=== PATIENT | male | born 1940 | race Caucasian/White ===

== ENCOUNTER → 2017-09-02 11:44 | Outpatient (CLI) | payer OTHER, SELFPAY ==
--- NOTE | 2017-09-02 11:50 | RAD_ITS ---
STUDY: X-RAY - RIGHT WRIST REASON FOR EXAM: Male, 77 years old. Redness and swelling. No known injury. TECHNIQUE: 3 view(s) of the wrist were obtained. COMPARISON: None. FINDINGS: Normal visualized distal radius. There is slight cortical irregularity along the lateral margin of the ulnar styloid. Normal radiocarpal articulation. Normal distal radioulnar articulation. Normal carpal bones. Minor degenerative narrowing suggested at the articulation between the distal scaphoid and trapezoid. Normal carpometacarpal articulation of the thumb. Minor narrowing suggested at the articulation between the trapezium and the lateral base of the second metacarpal. Otherwise, normal second through fifth carpometacarpal articulations. Normal visualized metacarpal bones. There is soft tissue swelling from the visualized forearm through the hand. There is no demonstrated osseous destructive lesion. There is no demonstrated acute fracture. RAD/Wrist min 3 Views IMPRESSION: Soft tissue swelling from the forearm through the hand, consistent with cellulitis. No acute osseous abnormality of the right wrist. Electronically Signed: Rodger Michaud MD at 12:35 EST , Service support ,
--- NOTE | 2017-09-02 11:50 | RAD_ITS ---
STUDY: X-RAY - RIGHT HAND REASON FOR EXAM: Male, 77 years old. Red and swollen and, no history of injury. TECHNIQUE: 3 view(s) of the hand. COMPARISON: None. FINDINGS: Normal radiocarpal articulation. Normal distal radioulnar joint. Normal visualized carpal bones. There are early degenerative changes at the articulations between the distal scaphoid and trapezoid as well as between the trapezoid and trapezium. Normal carpometacarpal articulation of the thumb. Early degenerative change at the articulation between the trapezium and lateral base of the second metacarpal. Normal third through fifth carpometacarpal joints. Occasional sites of mild, intact cortical irregularity consistent with chronic degenerative change noted at the heads of the metacarpals. Normal metacarpophalangeal joint of the thumb. Normal interphalangeal joint of the thumb. Normal proximal and distal phalanges of the thumb. There is degenerative arthrosis of the metacarpophalangeal (MCP) joints. Normal proximal and distal interphalangeal joints of the second through fifth fingers. Normal phalanges of the second through fifth fingers. There is soft tissue swelling from the visualized distal forearm through the fingers, which may reflect cellulitis. There is no demonstrated osseous destructive lesion or acute fracture. RAD/Hand Min 3 Views IMPRESSION: Soft tissue swelling consistent with cellulitis. Mild occasional degenerative changes of the right hand, as noted. No acute osseous abnormality. Electronically Signed: Rodger Michaud MD at 12:13 EST , Service support ,
== END ==
PROVIDERS: Family Provider Family Medicine; PCP Family Medicine; Visit Provider Family Medicine
DX: M79.89 Other specified soft tissue disorders (principal); M25.431 Effusion, right wrist
CPT/HCPCS: 73110; 73130

== ENCOUNTER → 2017-11-12 07:00 | Outpatient (CLI) | payer OTHER, SELFPAY ==
[2017-11-12 10:32] LABS: PSA,Total- Diagnostic 4.11 ng/mL (0.0-4.0)
== END ==
PROVIDERS: Family Provider Family Medicine; PCP Family Medicine; Visit Provider Urology
DX: R97.20 Elevated prostate specific antigen [PSA] (principal)
CPT/HCPCS: 36415; 84153

== ENCOUNTER 2018-05-31 06:35 | Outpatient (RCR) | payer OTHER, SELFPAY ==
[2017-08-02 00:33] VITALS: BP 142/58; BP 190/68
== END 2018-06-01 23:59 ==
LOC: CR 06:35
PROVIDERS: Family Provider Family Medicine; PCP Family Medicine; Visit Provider Internal Medicine Cardiovascular Disease
DX: Z95.2 Presence of prosthetic heart valve (principal)
CPT/HCPCS: 93798

== ENCOUNTER → 2018-10-14 14:59 | Outpatient (CLI) | payer OTHER, SELFPAY ==
[2017-07-16 14:56] VITALS: BMI 29.3
== END ==
PROVIDERS: Family Provider Family Medicine; PCP Family Medicine; Referring Provider Urology; Visit Provider Urology
DX: Z12.5 Encounter for screening for malignant neoplasm of prostate (principal)
CPT/HCPCS: 36415; 84153; G0103

== ENCOUNTER → 2019-01-27 13:44 | Outpatient (CLI) | payer OTHER, SELFPAY ==
[2019-01-12 15:18] VITALS: BMI 27.4
--- NOTE | 2019-01-27 13:46 | ECHOD_ITS ---
Reason For Study: Bicuspid AoV Procedure This was a 2D Doppler, Color Flow transthoracic echocardiogram. Exam performed in department. Left Ventricle Normal LV size. Mild concentric left ventricular hypertrophy. The estimated ejection fraction is 65 %. Normal diastology for age. No regional wall motion abnormalities noted. Right Ventricle Normal RV size. Normal systolic function. Atria Normal left atrium. Normal right atrium. Mitral Valve Normal mitral valve. Tricuspid Valve Normal tricuspid valve. Mild (1+) tricuspid valve insufficiency. Pulmonary artery systolic pressure is 28 mmHg. Aortic Valve Stable appearing bioprosthetic aortic valve apparatus. Pulmonic Valve Normal pulmonic valve. Great Vessels Normal aortic root. The pulmonary artery is normal size. Normal inferior vena cava. Pericardium/Pleural No pericardial effusion. MMode/2D Measurements & Calculations LVIDd: 3.9 cm IVSd: 1.4 cm LVOT diam: 2.0 cm LVIDs: 2.4 cm LVPWd: 1.4 cm LVOT area: 3.1 cm2 RVDd: 4.3 cm FS: 39.1 % Ao root diam: 3.6 cm LAV(MOD-bp): 52.5 ml LVAd ap4: 25.4 cm2 LAV(MOD-bp) Indexed: 26.8 ml/m2 EDV(MOD-sp4): 68.4 ml LAV(MOD-sp2): 61.2 ml EDV(sp4-el): 67.5 ml LAV(MOD-sp4): 44.0 ml LVAs ap4: 12.2 cm2 ESV(MOD-sp4): 20.4 ml ESV(sp4-el): 19.7 ml EF(MOD-sp4): 70.2 % EF(sp4-el): 70.9 % SV(MOD-sp4): 48.0 ml SV(sp4-el): 47.9 ml LA A4 area: 17.3 cm2 LA dimension(2D): 4.7 cm RA A4 area: 18.6 cm2 Doppler Measurements & Calculations MV E max moses: 64.0 cm/sec Lat Peak E' Moses: 10.3 cm/sec Med Peak E' Moses: 4.7 cm/sec MV A max moses: 86.1 cm/sec E/E' lat: 6.2 E/E' med: 13.6 MV E/A: 0.74 Ao V2 max: 304.8 cm/sec LV V1 max: 139.8 cm/sec SV(LVOT): 91.9 ml Ao max P.2 mmHg LV V1 max P.8 mmHg Ao V2 mean: 194.2 cm/sec LV V1 mean P.8 mmHg Ao mean P.7 mmHg LV V1 mean: 92.2 cm/sec Ao V2 VTI: 60.4 cm LV V1 VTI: 29.8 cm CASH(I,D): 1.5 cm2 CASH(V,D): 1.4 cm2 PA V2 max: 86.1 cm/sec TR max moses: 245.0 cm/sec TR max P.0 mmHg Interpretation Summary Normal LV size. Mild concentric left ventricular hypertrophy. The estimated ejection fraction is 65 %. Normal diastology for age. No regional wall motion abnormalities noted. Stable appearing bioprosthetic aortic valve apparatus. Mild (1+) tricuspid valve insufficiency. Ordering Physician: Dav Palacios Referring Physician: Ronnie Brewster Performed By: Marlys Ashley, DAVID, RVT
== END ==
PROVIDERS: Family Provider Family Medicine; PCP Family Medicine; Referring Provider Internal Medicine Cardiovascular Disease; Visit Provider Internal Medicine Cardiovascular Disease
DX: I48.0 Paroxysmal atrial fibrillation (principal); I35.1 Nonrheumatic aortic (valve) insufficiency; I10 Essential (primary) hypertension; M06.9 Rheumatoid arthritis, unspecified; Z98.890 Other specified postprocedural states; Z95.2 Presence of prosthetic heart valve
CPT/HCPCS: 93306

== ENCOUNTER → 2019-09-15 07:02 | Outpatient (CLI) | payer OTHER, SELFPAY ==
[2019-01-12 15:18] VITALS: BMI 27.4
[2019-09-15 10:25] LABS: PSA,Total- Diagnostic 4.92 ng/mL (0.0-4.0)
== END ==
PROVIDERS: PCP Family Medicine; Referring Provider Urology; Visit Provider Urology
DX: R97.20 Elevated prostate specific antigen [PSA] (principal)
CPT/HCPCS: 36415; 84153

== ENCOUNTER → 2020-12-23 07:43 | Outpatient (CLI) | payer OTHER, SELFPAY ==
[2020-01-11 14:51] VITALS: BMI 26.4
[2020-12-23 08:52] LABS: PSA,Total - Annual Screen 6.31 ng/mL (0.00-4.00)
== END ==
PROVIDERS: PCP Family Medicine; Referring Provider Urology; Visit Provider Urology
DX: Z12.5 Encounter for screening for malignant neoplasm of prostate (principal)
CPT/HCPCS: 36415; 84153; G0103

== ENCOUNTER → 2020-12-24 07:36 | Outpatient (CLI) | payer OTHER, SELFPAY ==
[2020-01-11 14:51] VITALS: BMI 26.4
[2020-12-24 09:07] LABS: AST(SGOT) 108 U/L (15-37); Alanine Aminotransfer ALT/SGPT 92 U/L (16-61); Albumin, Serum 3.6 g/dL (3.2-5.0); Alkaline Phosphatase 78 U/L (45-117); Anion Gap 2 (5-15); BUN 21 mg/dL (7-18); BUN/Creat Ratio 24.1 RATIO (10-20); Bilirubin, Direct 0.21 mg/dL (0.00-0.30); Chloride 108 mmol/L (98-107); Cholesterol 213 mg/dL (200); Creatinine, Serum 0.87 mg/dL (0.70-1.30); EST Glomerular Filtration Rate 90 mL/min (>60); Est Glom Filt Rate - Afr Amer 109 mL/min (>60); Glucose 86 mg/dL (74-106); High Density Lipoprotein 53 mg/dL; Potassium 4.1 mmol/L (3.5-5.1); Protein, Total 6.6 g/dL (6.4-8.2); Sodium Level 140 mmol/L (136-145); Triglycerides 111 mg/dL; Very Low Density Lipoprotein 22 mg/dL (5-40)
== END ==
PROVIDERS: PCP Family Medicine; Referring Provider Internal Medicine Cardiovascular Disease; Visit Provider Internal Medicine Cardiovascular Disease
DX: I10 Essential (primary) hypertension (principal); Z95.2 Presence of prosthetic heart valve
CPT/HCPCS: 36415; 80048; 80061; 80076

== ENCOUNTER → 2021-01-13 14:39 | Outpatient (CLI) | payer OTHER, SELFPAY ==
[2020-01-11 14:51] VITALS: BMI 26.4
--- NOTE | 2021-01-13 15:11 | ECHOD_ITS ---
Reason For Study: Valve Replacement Eval Procedure This was a 2D Doppler, Color Flow transthoracic echocardiogram. Exam performed in department. Left Ventricle Normal LV size. Left ventricular systolic function is normal. The estimated ejection fraction is 60 %. Stage 1 diastolic dysfunction. No regional wall motion abnormalities noted. Right Ventricle Normal RV size. Normal systolic function. Atria The left atrium is mildly enlarged. Normal right atrium. Mitral Valve Normal mitral valve. Tricuspid Valve Normal tricuspid valve. Mild tricuspid valve insufficiency. Pulmonary artery systolic pressure is 28 mmHg. Aortic Valve Stable appearing bioprosthetic aortic valve apparatus. Pulmonic Valve Normal pulmonic valve. Great Vessels Normal aortic root. The pulmonary artery is normal size. Normal inferior vena cava. Pericardium/Pleural No pericardial effusion. MMode/2D Measurements & Calculations LVIDd: 4.7 cm IVSd: 1.4 cm LVOT diam: 2.0 cm LVIDs: 2.6 cm LVPWd: 1.1 cm LVOT area: 3.0 cm2 RVDd: 3.9 cm FS: 43.6 % Ao root diam: 3.3 cm LAV(MOD-bp): 71.4 ml LVAd ap4: 31.4 cm2 LAV(MOD-bp) Indexed: 36.2 ml/m2 LVLd ap4: 8.1 cm LAV(MOD-sp2): 71.9 ml EDV(MOD-sp4): 104.9 ml LAV(MOD-sp4): 68.7 ml EDV(sp4-el): 102.5 ml LVAs ap4: 15.8 cm2 LVLs ap4: 6.8 cm ESV(MOD-sp4): 34.8 ml ESV(sp4-el): 31.4 ml EF(MOD-sp4): 66.8 % EF(sp4-el): 69.4 % SV(MOD-sp4): 70.1 ml SV(sp4-el): 71.1 ml LA A4 area: 22.8 cm2 LA dimension(2D): 5.5 cm RA A4 area: 20.9 cm2 Doppler Measurements & Calculations MV E max moses: 63.4 cm/sec Lat Peak E' Moses: 12.2 cm/sec Med Peak E' Moses: 3.4 cm/sec MV A max moses: 71.3 cm/sec E/E' lat: 5.2 E/E' med: 18.5 MV E/A: 0.89 Ao V2 max: 261.7 cm/sec LV V1 max: 180.3 cm/sec SV(LVOT): 131.7 ml Ao max P.4 mmHg LV V1 max P.0 mmHg Ao V2 mean: 175.9 cm/sec LV V1 mean P.9 mmHg Ao mean P.8 mmHg LV V1 mean: 125.0 cm/sec Ao V2 VTI: 60.8 cm LV V1 VTI: 43.6 cm CASH(I,D): 2.2 cm2 CASH(V,D): 2.1 cm2 PA V2 max: 78.9 cm/sec TR max moses: 247.0 cm/sec TR max P.4 mmHg ECHO/Echo Complete Interpretation Summary Normal LV size. Left ventricular systolic function is normal. The estimated ejection fraction is 60 %. Pulmonary artery systolic pressure is 28 mmHg. Stage 1 diastolic dysfunction. The left atrium is mildly enlarged. Stable appearing bioprosthetic aortic valve apparatus. Ordering Physician: aDv Palacios Referring Physician: Daniel Davis Performed By: Marlys Ashley, DAVID, RVT
== END ==
PROVIDERS: PCP Family Medicine; Referring Provider Internal Medicine Cardiovascular Disease; Visit Provider Internal Medicine Cardiovascular Disease
DX: I10 Essential (primary) hypertension (principal); Z95.2 Presence of prosthetic heart valve
CPT/HCPCS: 93306

== ENCOUNTER → 2021-06-16 07:03 | Outpatient (CLI) | payer OTHER, SELFPAY ==
[2020-01-11 14:51] VITALS: BMI 26.4
[2021-06-16 10:32] LABS: PSA,Total- Diagnostic 4.98 ng/mL (0.0-4.0)
== END ==
PROVIDERS: PCP Family Medicine; Referring Provider Nurse Practitioner Adult Health; Visit Provider Nurse Practitioner Adult Health
DX: R97.20 Elevated prostate specific antigen [PSA] (principal)
CPT/HCPCS: 36415; 84153

== ENCOUNTER → 2022-01-26 | Outpatient (CLI) | payer OTHER, SELFPAY ==
[2022-01-26 12:57] LABS: PSA,Total- Diagnostic 6.22 ng/mL (0.0-4.0)
== END | disposition home or self-care (01) ==
PROVIDERS: PCP Family Medicine; Referring Provider Urology; Visit Provider Urology
DX: R97.20 Elevated prostate specific antigen [PSA] (principal)
CPT/HCPCS: 36415; 84153

== ENCOUNTER → 2022-02-25 | Outpatient (CLI) | payer OTHER, SELFPAY ==
--- NOTE | 2022-02-25 08:49 | CT_ITS ---
STUDY: CTA CHEST REASON FOR EXAM: Male, 81 years old. Aortic valve replacement. Dilatation of the ascending thoracic aorta. RADIATION DOSAGE (If Supplied By Facility): CTDIvol = ( 24.85 ) mGy, DLP = ( 535.74 ) mGycm TECHNIQUE: The examination was performed with the intravenous administration of IV 100mL Isovue-370. Post-processing of the angiographic images was performed, with multiplanar reformation and 3D reconstruction. Individualized dose optimization techniques were used for this CT. COMPARISON: None. FINDINGS: Normal enhancement of the main pulmonary artery and right and left pulmonary arteries. Normal enhancement of the bilateral peripheral pulmonary arteries. There is no demonstrated pulmonary embolism. 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 The transverse dimension of the ascending thoracic aorta presently measures 3.4 cm. Postoperative changes are seen. There is no demonstrated aortic dissection. Sternal cerclage wires are present from a prior sternotomy. Mild cardiomegaly. There are visualized mediastinal lymph nodes, which are within normal size limits, and with normal morphology. Normal hilar regions. Normal visualized trachea and bronchi. The lungs are well expanded. Normal pulmonary parenchyma. Normal pleura. Normal chest wall structures. There are degenerative changes of thoracic spine. Normal visualized upper abdomen. 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 Electronically Signed: Carlin Montano MD at 10:11 EDT ,
[2022-02-25 09:25] LABS: CREATININE FINGERSTICK < 0.9 mg/dL (0.70-1.30); EGFR FINGERSTICK > 60.0000 mL/min (>60)
[2022-02-25 10:35] LABS: AST(SGOT) 25 U/L (15-37); Alanine Aminotransfer ALT/SGPT 21 U/L (16-61); Alkaline Phosphatase 72 U/L (45-117); Anion Gap 2 (5-15); BUN 23 mg/dL (7-18); BUN/Creat Ratio 23.7 RATIO (10-20); Bilirubin, Direct 0.22 mg/dL (0.00-0.30); Calcium,Total 9.1 mg/dL (8.5-10.1); Chloride 108 mmol/L (98-107); Cholesterol 134 mg/dL (200); Creatinine, Serum 0.97 mg/dL (0.70-1.30); EST Glomerular Filtration Rate 79 mL/min (>60); Est Glom Filt Rate - Afr Amer 96 mL/min (>60); Globulin 2.6 g/dL (2.2-4.2); Glucose 83 mg/dL (74-106); High Density Lipoprotein 53 mg/dL; Potassium 4.3 mmol/L (3.5-5.1); Protein, Total 6.6 g/dL (6.4-8.2); Sodium Level 140 mmol/L (136-145); Triglycerides 46 mg/dL; Very Low Density Lipoprotein 9 mg/dL (5-40)
== END | disposition home or self-care (01) ==
LOC: CT 08:43
PROVIDERS: PCP Family Medicine; Referring Provider Internal Medicine Cardiovascular Disease; Visit Provider Internal Medicine Cardiovascular Disease
DX: E78.00 Pure hypercholesterolemia, unspecified (principal); Z98.890 Other specified postprocedural states; Z95.2 Presence of prosthetic heart valve
CPT/HCPCS: 36415; 71275; 80048; 80061; 80076; Q9967

== ENCOUNTER → 2023-10-04 | Outpatient (CLI) | payer MEDICARE, BC, SELFPAY ==
--- OUTSIDE RECORDS SUMMARY | 2023-10-04 07:18 | XMS RPT_ITS | CCD ---
Author Name Unknown Address [address] [place] [address] Organization [facility] Care Team Providers Care Meat Service Team Member Name Role Phone JANET Rodriguez, Rina Mendoza Unavailable Guy Maldonado RN, Chloe Brunson Unavailable Unavailable Erica GONZALES, Chloe Brunson Unavailable Unavailable SVENSSONMK G Unavailable Unavailable SVENSSON, LARS G Unavailable Unavailable LINCOFF, MARAH Unavailable Unavailable SVENSSON, LARS G Unavailable Unavailable LINCOFF, MARAH Unavailable Unavailable LINCOFF, MARAH Unavailable Unavailable SVENSSON, LARS G Unavailable Unavailable SVENSSON, LARS G Unavailable Unavailable SVENSSON, LARS G Unavailable Unavailable SVENSSON, LARS G Unavailable Unavailable SVENSSON, LARS G Unavailable Unavailable SVENSSON, LARS G Unavailable Unavailable SVENSSON, LARS G Unavailable Unavailable SVENSSON, LARS G Unavailable Unavailable HEMA CABALLERO (RECOVERY ANALYST) Unavailable Unava ilable SVSON LARS G Unavailable Unavailable JANET Rodriguez, Rina Mendoza Unavailable Unavailcindy Rodriguez RN, Rina Mendoza Unavailable Unavailcindy Maldonado RN, Chloe Brunson Unavailable Unavailable Medications Completed/Discontinued Medications Medication Drug Class(es) Dates Sig (Normalized) Sig (Original) amoxicillin 500 mg oral tablet (4 sources) Penicillin-class Antibacterial Start: 04-09-2017 take 4 tablets by mouth every hour AMOXICILLIN 500 MG TABS 4 tablets by mouth 1 hr prior to procedure AMOXICILLIN [id number] Dav Palacios MD aspirin 81 mg delayed release oral tablet (4 sources) Platelet Aggregation Inhibitor, Nonsteroidal Anti-inflammatory Drug Start: 04-09-2017 take 2 tablets by mouth once daily ASPIRIN EC 81 MG TBEC Two tablets by mouth daily ASPIRIN [id number] Dav Palacios MD 0.98 ml etanercept 50 mg/ml prefilled syringe (6 sources) Tumor Necrosis Factor Charito Start: 11-02-2016 ENBREL 50 MG/ML SOSY Once a week [facility] [phone] Chloe Maldonado RN Problems Active Problems Problem Classification Problem Date Documented Date Episodic/Chronic Aortic; peripheral; and visceral artery aneurysms (7 sources) Thoracic aortic aneurysm without rupture; Translations: [Thoracic aortic aneurysm, without rupture] Onset: 11-02-2016 11-02-2016 Chronic Cardiac dysrhythmias (4 sources) Paroxysmal atrial fibrillation; Translations: [Paroxysmal atrial fibrillation] Onset: 04-09-2017 04-09-2017 Chronic Essential hypertension (7 sources) Hypertensive disorder; Translations: [Essential (primary) hypertension] Onset: 11-02-2016 11-02-2016 Chronic Heart valve disorders (7 sources) Nonrheumatic aortic (valve) insufficiency; Translations: [Nonrheumatic aortic valve disorder, unspecified] Onset: 03-18-2017 04-06-2017 Chronic Respiratory failure; insufficiency; arrest (1 source) 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; Translations: [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] Onset: 03-22-2017 Chronic Unclassified (2 sources) Replacement of aortic valve ; Translations: [Presence of prosthetic heart valve] Onset: 04-06-2017 04-06-2017 Unclassified (4 sources) Replacement of aortic root; Translations: [Other specified postprocedural states] Onset: 04-06-2017 04-06-2017 Past or Other Problems Problem Classification Problem Date Documented Date Episodic/Chronic Medical examination/evaluatio n (1 source) Encounter for preprocedural cardiovascular examination; Translations: [Encounter for preprocedural cardiovascular examination] Onset: 03-18-2017 Episodic Nonspecific chest pain (6 sources) Chest pain; Translations: [Chest pain, unspecified] Onset: 11-02-2016 11-02-2016 Episodic Other connective tissue disease (1 source) Personal history of other diseases of the musculoskeletal system and connective tissue; Translations: [Personal history of other diseases of the musculoskeletal system and connective tissue] Onset: 03-22-2017 Episodic Other nervous system disorders (1 source) Other acute postprocedural pain; Translations: [Other acute postprocedural pain] Onset: 03-22-2017 Episodic Other nutritional; endocrine; and metabolic disorders (6 sources) Body mass index (BMI) 29.0-29.9, adult; Translations: [Body mass index (BMI) 29.0-29.9, adult] Onset: 11-06-2016 11-06-2016 Episodic Pleurisy; pneumothorax; pulmonary collapse (1 source) Atelectasis; Translations: [Atelectasis] Onset: 03-22-2017 Episodic Unclassified (1 source) Other specified postprocedural states; Translations: [Other specified postprocedural states] Onset: 04-06-2017 04-06-2017 Episodic Results Test Name Value Interpretation Reference Range Facil ity Vital Signs Date Time Vital Sign Value Performing Clinician Blaise moscoso 04-09-2017 14:090400 Heart rate 49 /min JANET [facility] Work Phone: 04-09-2017 12:11-0400 BMI (Body Mass Index) 29.24 kg/m2 JANET [facility] Work Phone: 04-09-2017 12:11-0400 Body Temperature 97.9 [degF] JANET [facility] Work Phone: 04-09-2017 12:11-0400 BP Diastolic 58 mm[Hg] JANET [facility] Work Phone: 04-09-2017 12:11-0400 BP Systolic 122 mm[Hg] JANET [facility] Work Phone: 04-09-2017 12:11-0400 Height 175.26 cm JANET [facility] Work Phone: 04-09-2017 12:11-0400 Pulse (Heart Rate) 54 /min [facility] Work Phone: 04-09-2017 12:11-0400 Respiratory Rate 16 /min JANET [facility] Work Phone: 04-09-2017 12:11-0400 Weight 89.81 kg JANET [facility] Work Phone: 11-06-2016 13:14-0400 BMI (Body Mass Index) 29.53 kg/m2 [facility] Work Phone: 11-06-2016 13:14-0400 BP Diastolic 50 mm[Hg] Chloe Maldonado RN [facility] Work Phone: 11-06-2016 13:14-0400 BP Systolic 132 mm[Hg] Chloe Maldonado RN [facility] Work Phone: 11-06-2016 13:14-0400 Height 175.26 cm Chloe Maldonado RN [facility] Work Phone: 11-06-2016 13:14-0400 Pulse (Heart Rate) 58 /min Chloe Maldonado RN [facility] Work Phone: 11-06-2016 13:14-0400 Respiratory Rate 18 /min Chloe Maldonado RN [facility] Work Phone: 11-06-2016 13:14-0400 Weight 90.72 kg Chloe Maldonado RN [facility] Work Phone: Encounters Encounter Date Encounter Type Care Provider Facility Start: 03-31-2017 End: 03-31-2017 Ambulatory HEMA (AKASH) FEDERICO [facility] Start: 03-22-2017 End: 03-27-2017 Evaluation and management of inpatient MK COATES [facility] Start: 03-19-2017 End: 03-19-2017 Ambulatory MK COATES [facility] Start: 03-18-2017 End: 03-23-2017 Ambulatory MARAH SY [facility] Procedures Date Procedure Procedure Detail Performing Clinician Start: 04-09-2017 End: 04-13-2017 Chest x-ray Dav Palacios MD Start: 04-09-2017 End: 04-09-2017 SUPERVISOR CHANNEL PROCESS Dav Palacios MD Start: 04-09-2017 End: 04-09-2017 Ecg routine ecg w/least 12 lds w/i&r Dav Palacios MD Start: 04-09-2017 End: 04-09-2017 Follow Up Appt 3 months Reji Ramirez Start: 04-09-2017 End: 04-09-2017 Dietary management education, guidance, and counseling Rina Rodriguez RN Start: 04-09-2017 End: 04-13-2017 Chest x-ray Dav Palacios MD Start: 04-09-2017 End: 04-09-2017 SUPERVISOR CHANNEL PROCESS Dav Palacios MD Start: 04-09-2017 End: 04-09-2017 Ecg routine ecg w/least 12 lds w/i&r Dav Palacios MD Start: 04-09-2017 End: 04-09-2017 Follow Up Appt 3 months Reji Ramirez Start: 04-06-2017 Replacement of aorti c valve Aortic valve replacement Rina Rodriguez RN Start: 11-06-2016 End: 04-09-2017 BRAD Palacios MD Start: 11-06-2016 End: 04-09-2017 Follow Up Appt 6 months Reji Ramirez Start: 11-06-2016 End: 11-06-2016 Dietary management education, guidance, and counseling Rina Rodriguez RN Start: 11-06-2016 End: 04-09-2017 BRAD Palacios MD Start: 11-06-2016 End: 04-09-2017 Follow Up Appt 6 months Reji Ramirez Plan of Treatment Date Care Activity Detail Author Start: 07-16-2017 End: 07-16-2017 Appointment Appointment [facility] Work Phone: Start: 05-11-2017 End: 05-11-2017 Appointment Appointment [facility] Work Phone: Start: 04-09-2017 End: 04-09-2017 Appointment Appointment [facility] Work Phone: Start: 04-09-2017 End: 04-13-2017 Cardiac Rehab [facility], [address], [place], [address] [facility] Work Phone: Start: 04-09-2017 End: 04-13-2017 Chest x-ray X-Ray, Chest, PA & Lateral [facility] Work Phone: Start: 04-09-2017 End: 04-09-2017 SUPERVISOR CHANNEL PROCESS SUPERVISOR CHANNEL PROCESS [facility] Work Phone: Start: 04-09-2017 End: 04-09-2017 Follow Up Appt 3 months Follow Up Appt 3 months [facility] Work Phone: Start: 04-09-2017 End: 04-13-2017 Cardiac Rehab [facility] Work Phone: Start: 04-09-2017 End: 04-13-2017 Chest x-ray X-Ray, Chest, PA & Lateral [facility] Work Phone: Start: 04-09-2017 End: 04-09-2017 SUPERVISOR CHANNEL PROCESS SUPERVISOR CHANNEL PROCESS [facility] Work Phone: Start: 04-09-2017 End: 04-09-2017 Follow Up Appt 3 months Follow Up Appt 3 months [facility] Work Phone: Start: 11-06-2016 End: 04-09-2017 SUPERVISOR CHANNEL PROCESS SUPERVISOR CHANNEL PROCESS [facility] Work Phone: Start: 11-06-2016 End: 04-09-2017 Follow Up Appt 6 months Follow Up Appt 6 months [facility] Work Phone: Start: 11-06-2016 End: 11-06-2016 Thoracic Surgery Referral Thoracic Surgery Referral [facility], [address] [place], [address] [facility] Work Phone: Start: 11-06-2016 End: 04-09-2017 SUPERVISOR CHANNEL PROCESS SUPERVISOR CHANNEL PROCESS [facility] Work Phone: Start: 11-06-2016 End: 04-09-2017 Follow Up Appt 6 months Follow Up Appt 6 months [facility] Work Phone: Start: 11-06-2016 End: 11-06-2016 Thoracic Surgery Referral Thoracic Surgery Referral [facility], [address], [place], [address] [facility] Work Phone: Summary Purpose Family History No Family History Records Found Advance Directives No Advanced Directives Records Found Additional Source Comments (unrecognized sect ion and content) No Status Records Found INFORMATION SOURCE (unrecogn ized section and content) FOR RECORDS PERTAINING TO PATIENTS WHO ARE OR HAVE BEEN ENROLLED IN A CHEMICAL DEPENDENCY/SUBSTANCEABUSE PROGRAM, SOME INFORMATION MAY BE OMITTED. This clinical summary was aggregated from multiple sources. Caution should be exercised in using it in the provision of clinical care. This summary normalizes information from multiple sources, and as a consequence, information in this document may materially change the coding, format and clinical context of patient data. In addition, data may be omitted in some cases. CLINICAL DECISIONS SHOULD BE BASED ON THE PRIMARY CLINICAL RECORDS. [facility]. provides no warranty or guarantee of the accuracy or completeness of information in this document.
[2023-10-04 10:56] LABS: PSA,Total- Diagnostic 6.04 ng/mL (0.0-4.0)
== END | disposition home or self-care (01) ==
PROVIDERS: PCP Family Medicine; Referring Provider Urology; Visit Provider Urology
DX: R97.20 Elevated prostate specific antigen [PSA] (principal)
CPT/HCPCS: 36415; 84153

== ENCOUNTER → 2024-04-18 | Outpatient (CLI) | payer MEDICARE, BC, SELFPAY ==
--- NOTE | 2024-04-18 08:44 | ECHOD_ITS ---
Reason For Study: Aortic Insufficiency Procedure This was a 2D Doppler, Color Flow transthoracic echocardiogram. Exam performed in department. Left Ventricle Normal LV size. Mild concentric left ventricular hypertrophy. Left ventricular systolic function is normal. The left ventricular ejection fraction is 65 %. Stage 1 diastolic dysfunction. No regional wall motion abnormalities noted. Right Ventricle Normal RV size. Normal systolic function. Atria The left atrium is mildly enlarged. The right atrium is mildly enlarged. Mitral Valve Normal mitral valve. Tricuspid Valve Normal tricuspid valve. Mild (1+) tricuspid valve insufficiency. Pulmonary artery systolic pressure is 36 mmHg. Aortic Valve Peak aortic valve gradient 28 mmHg. Mean aortic valve gradient 11 mmHg. Normal prosthetic aortic valve. Pulmonic Valve Normal pulmonic valve. Great Vessels Normal aortic root. The pulmonary artery is normal size. Inferior vena cava collapse with respiration. Pericardium/Pleural No pericardial effusion. MMode/2D Measurements & Calculations LVIDd: 4.5 cm IVSd: 1.6 cm LVOT diam: 2.0 cm LVIDs: 2.3 cm LVPWd: 1.2 cm LVOT area: 3.3 cm2 RVDd: 4.1 cm FS: 47.6 % Ao root diam: 3.3 cm LAV(MOD-bp): 73.4 ml LA A4 area: 22.1 cm2 LAV(MOD-bp) Indexed: 36.4 ml/m2 LAV(MOD-sp2): 84.1 ml LAV(MOD-sp4): 66.3 ml LA dimension(2D): 4.9 cm TAPSE: 1.7 cm RA A4 area: 23.5 cm2 Time Measurements MV dec time: 0.25 sec Doppler Measurements & Calculations MV E max moses: 70.9 cm/sec Lat Peak E' Moses: 13.0 cm/sec Med Peak E' Moses: 6.1 cm/sec MV A max moses: 86.4 cm/sec E/E' lat: 5.5 E/E' med: 11.6 MV E/A: 0.82 MV V2 max: 99.0 cm/sec MV P1/2t max moses: 95.9 cm/sec Ao V2 max: 263.7 cm/sec MV max P.9 mmHg MV P1/2t: 103.3 msec Ao max P.9 mmHg MV V2 mean: 44.8 cm/sec MV dec slope: 271.9 cm/sec2 Ao V2 mean: 153.1 cm/sec MV mean P.1 mmHg Ao mean P.4 mmHg MV V2 VTI: 44.8 cm MVA(P1/2t): 2.1 cm2 Ao V2 VTI: 56.0 cm MVA(VTI): 1.9 cm2 AV (velocity ratio): 0.47 CASH(I,D): 1.5 cm2 CASH(V,D): 1.4 cm2 LV V1 max: 109.9 cm/sec SV(LVOT): 85.7 ml PA V2 max: 97.0 cm/sec LV V1 max P.9 mmHg LV V1 mean P.5 mmHg LV V1 mean: 74.3 cm/sec LV V1 VTI: 26.2 cm TR max moses: 285.2 cm/sec TR max P.5 mmHg ECHO/Echo Complete Interpretation Summary Normal LV size. Mild concentric left ventricular hypertrophy. The left ventricular ejection fraction is 65 %. Stage 1 diastolic dysfunction. Pulmonary artery systolic pressure is 36 mmHg. Peak aortic valve gradient 28 mmHg. Normal prosthetic aortic valve with unchanged gradients.. Ordering Physician: Lyly Brumfield Referring Physician: Lyly Brumfield Performed By: Klever Josue RCS
== END | disposition home or self-care (01) ==
LOC: CVS 08:38
PROVIDERS: PCP Family Medicine; Referring Provider Nurse Practitioner Gerontology; Visit Provider Nurse Practitioner Gerontology
DX: I35.1 Nonrheumatic aortic (valve) insufficiency (principal); Z95.2 Presence of prosthetic heart valve
CPT/HCPCS: 93306

== ENCOUNTER → 2024-05-02 | Outpatient (CLI) | payer MEDICARE, BC, SELFPAY ==
[2024-05-02 12:15] LABS: Absolute Lymphocyte Count 1.05 X10^3/uL (0.83-4.51); Absolute Neutrophil Count 3.6 X10^3/uL (2.0-7.7); Basophil# 0.03 X10^3/uL; Basophil% 0.6 % (0-1); Eosinophil# 0.11 X10^3/uL; Eosinophils% 2.1 % (0-5); Hemoglobin 13.7 g/dL (13.0-16.5); Lymphocyte # 1.05 X10^3/ul (0.83-4.51); Lymphocyte % 19.9 % (19-41); Mean Corp Hgb Conc 32.6 g/dL (32-36); Mean Corpuscular Hgb 32.4 pg (27.0-32.0); Mean Corpuscular Volume 99.3 fL (80-94); Mean Platelet Vol. 10.2 fl (6.2-12.0); Monocyte% 9.5 % (0-10); NRBC Flagged by Analyzer 0 % (0-5); Neutrophil # 3.57 X10^3/uL (2.7-7.7); Neutrophil % 67.7 % (47-70); Platelet Count 184 K/mm3 (150-450); RBC Distribution Width CV 14.8 % (11.6-14.6); RBC Distribution Width SD 54.4 fl (35.1-43.9); Red Blood Count 4.23 M/mm3 (4.6-6.2); White Blood Count 5.3 K/mm3 (4.4-11.0)
[2024-05-02 12:43] LABS: AST(SGOT) 25 U/L (15-37); Alanine Aminotransfer ALT/SGPT 25 U/L (16-61); Albumin, Serum 3.5 g/dL (3.2-5.0); Alkaline Phosphatase 75 U/L (45-117); Anion Gap 5 (5-15); BUN 19 mg/dL (7-18); BUN/Creat Ratio 23.5 RATIO (10-20); Bilirubin, Direct 0.25 mg/dL (0.00-0.30); Calcium,Total 8.9 mg/dL (8.5-10.1); Chloride 107 mmol/L (98-107); Cholesterol 131 mg/dL (200); Creatinine, Serum 0.81 mg/dL (0.70-1.30); EST Glomerular Filtration Rate 97 mL/min (>60); Est Glom Filt Rate - Afr Amer 118 mL/min (>60); Globulin 2.7 g/dL (2.2-4.2); Glucose 68 mg/dL (74-106); High Density Lipoprotein 53 mg/dL; Potassium 4.2 mmol/L (3.5-5.1); Protein, Total 6.2 g/dL (6.4-8.2); Sodium Level 140 mmol/L (136-145); Triglycerides 77 mg/dL; Very Low Density Lipoprotein 15 mg/dL (5-40)
== END | disposition home or self-care (01) ==
LOC: LAB 10:44
PROVIDERS: PCP Family Medicine; Referring Provider Internal Medicine Cardiovascular Disease; Visit Provider Internal Medicine Cardiovascular Disease
DX: I10 Essential (primary) hypertension (principal); Z98.890 Other specified postprocedural states; Z95.2 Presence of prosthetic heart valve; E78.00 Pure hypercholesterolemia, unspecified
CPT/HCPCS: 36415; 80048; 80061; 80076; 84443; 85025

== ENCOUNTER → 2024-10-31 | Outpatient (CLI) | payer MEDICARE, BC, SELFPAY ==
[2024-10-31 08:22] LABS: AST(SGOT) 33 U/L (<=37); Alanine Aminotransfer ALT/SGPT 18 U/L (<=46); Alkaline Phosphatase 75 U/L (40-129); Bilirubin, Direct 0.32 mg/dL (0.00-0.30); Cholesterol 141 mg/dL (<=200); Globulin 2.4 g/dL (2.2-4.2); High Density Lipoprotein 53 mg/dL; Low Density Lipoprotein Calc. 78 mg/dL; Protein, Total 6.4 g/dL (5.9-8.4); Total Bilirubin 0.68 mg/dL (0.00-1.30); Triglycerides 52 mg/dL; Very Low Density Lipoprotein 10 mg/dL (5-40); cholesterol:hdl ratio screen 2.66
== END | disposition home or self-care (01) ==
LOC: LAB 07:31
PROVIDERS: PCP Family Medicine; Referring Provider Physician Assistant Medical; Visit Provider Physician Assistant Medical
DX: E78.00 Pure hypercholesterolemia, unspecified (principal)
CPT/HCPCS: 36415; 80061; 80076

== ENCOUNTER → 2025-05-03 | Outpatient (CLI) | payer MEDICARE, BC, SELFPAY ==
[2025-05-03 09:03] LABS: AST(SGOT) 37 U/L (<=37); Alanine Aminotransfer ALT/SGPT 37 U/L (<=46); Albumin, Serum 4.1 g/dL (3.4-4.8); Alkaline Phosphatase 89 U/L (40-129); Bilirubin, Direct 0.31 mg/dL (0.00-0.30); Cholesterol 148 mg/dL (<=200); Globulin 2.4 g/dL (2.2-4.2); Low Density Lipoprotein Calc. 78 mg/dL; Triglycerides 59 mg/dL; Very Low Density Lipoprotein 12 mg/dL (5-40); cholesterol:hdl ratio screen 2.55
== END | disposition home or self-care (01) ==
LOC: LAB 07:08
PROVIDERS: PCP Family Medicine; Referring Provider Nurse Practitioner Family; Visit Provider Nurse Practitioner Family
DX: E78.00 Pure hypercholesterolemia, unspecified (principal)
CPT/HCPCS: 36415; 80061; 80076

== ENCOUNTER 2025-06-06 10:29 | Emergency (ER) | payer MEDICARE, BC, SELFPAY ==
[2025-06-06 10:29] VITALS: BP 166/86; PULSE 61; RESP 16; TEMP 36.6; O2SAT 99
--- NOTE | 2025-06-06 10:38 | CT_ITS ---
PROCEDURE: BRAIN/HEAD WITHOUT CONTRAST 06/06/2025 REASON FOR EXAM: Headache after trauma TECHNIQUE: Procedure Code: CTBR Modality: CT Procedure: BRAIN/HEAD WITHOUT CONTRAST Coronal and Sagittal reconstruction series were provided. One or more dose reduction techniques were used (e.g., Automated exposure control, adjustment of the mA and/or kV according to patient size, use of iterative reconstruction technique. RADIATION DOSE SUMMARY: CTDlvol: 44.99 mGy DLP: 829.85 mGycm COMPARISON: None FINDINGS: Age consistent atrophic, periventricular, and deep white matter changes, no acute hemorrhage midline shift or mass effect. No skull fracture or scalp hematoma. Paranasal sinuses and globes are unremarkable CT/Brain/Head without Contrast IMPRESSION: Age consistent changes, no acute findings Reading Location: [id number]
--- NOTE | 2025-06-06 10:44 | EX.ED.GENINJ ---
HPI History of Present Illness Chief Complaint: Head Injury Narrative Narrative: Chief complaint and HPI: 84-year-old male with past medical history of HTN, rheumatoid arthritis, HLD presents for evaluation of closed head injury. Patient states he was in his garage when he lost his balance and fell. Hit the back of his head on a table leg. Denies LOC. Not on blood thinners. Denies any neck pain. Has laceration to the scalp as well as skin tear to the left hand. Denies any headache, neck pain, back pain, abdominal pain, chest pain, shortness of breath. Unknown last tetanus. Review of systems: See HPI Medications: As listed on the chart Allergies: As listed on the chart PFSH: Per chart Vital signs: As listed on the chart. Reviewed. Physical exam: Gen: A&O x3, NAD Head: Normocephalic, posterior scalp hematoma with laceration, no nichole signs Eyes: No sclera icterus, conjunctiva clear, PERRL, EOMI, no raccoon eyes ENT: TMs clear BL, moist mucous membranes, face atraumatic Neck: Trachea midline, full range of motion, nontender CV: RRR, no murmurs, no chest wall TTP Resp: Lungs CTA BL, no w/r/c GI: Abd soft, non-distended, non-tender, no r/r/g Musc: Full ROM, no deformity, no spinal TTP, no cassidy step-offs Skin: Warm, dry, skin tear to the dorsum of the left hand proximal to thumb-no tenderness, radial pulse +2, good capillary refill, sensation intact Neuro: Alert, oriented, grossly intact, sensation intact, GCS 15 Psych: Cooperative, appropriate mood and affect [facility] Medical History Postoperative atrial fibrillation (03/2017) Ascending aortic aneurysm Essential (primary) hypertension Rheumatoid arthritis Nonrheumatic aortic valve insufficiency Home Medications ?Medication ?Instructions ?Recorded ?Last Taken ?Type folic acid 1 mg tablet 1 mg PO DAILY@0800 02/17/10/18/16 History 0900 aspirin 81 mg tablet,delayed 81 mg PO DAILY@0800 04/19/17 Unknown History release amoxicillin 500 mg capsule 2,000 mg (4 x 500 mg) PO ONCE PRN 01/12/19 Unknown Rx avr #4 caps methotrexate sodium 2.5 mg tablet 10 mg PO Q7D 01/11/20 Unknown History atorvastatin 10 mg tablet 10 mg PO QHS #90 tabs 04/09/25 Unknown Rx metoprolol succinate 25 mg See Rx Instructions .Route 04/09/25 Unknown Rx tablet,extended release 24 hr .COMPLEX #45 tabs Allergy/AdvReac Type Severity Reaction Status Date / Time No Known Allergies Allergy Verified 06/06/25 10:31 Family History Father CAD (coronary artery disease) Surgical History History of left heart catheterization (2016) H/O transurethral resection of prostate History of appendectomy History of aortic root repair (03/22/17) H/O aortic valve replacement (03/22/17) Social History Smoking Status: Never smoker alcohol intake: current alcohol intake frequency: holidays/special occasions only EXAM Physical Exam Const Vital Signs: 06/06/25 10:29 06/06/25 10:38 Temperature 98 F Temperature Source Temporal Pulse Rate 61 Respiratory Rate 16 Respiratory Effort Normal Respiratory Depth Normal Respiratory Pattern Normal Blood Pressure 166/86 H Blood Pressure Mean 112 Pulse Ox 99 Oxygen Delivery Method Room Air Room Air MDM MDM MDM Narrative Medical decision making narrative: 84-year-old male with past medical history of HTN, rheumatoid arthritis, HLD presents for evaluation of closed head injury. Patient states he was in his garage when he lost his balance and fell. Hit the back of his head on a table leg. Denies LOC. Not on blood thinners. Denies any neck pain. Has laceration to the scalp as well as skin tear to the left hand. See physical exam findings. Patient's laceration and skin tear will be cleaned thoroughly. Bacitracin will be applied over the skin tear with dressing. No repair needed of the skin tear. Laceration of the scalp will be repaired with frankie. Patient consented to tetanus update. Will obtain CT of the head given injury. Patient has full range of motion of the neck without any pain or tenderness to palpation. I do not think imaging of the cervical spine is needed at this time. CT of head shows no acute intracranial abnormality. Patient tolerated laceration repair well. Follow-up with primary care physician. Frankie need to be removed in 10 to 14 days. Monitor for signs of infection. Tylenol and Motrin as needed. He confirmed understand the plan. Patient stable to discharge home. Laceration Repair Indication: Laceration Location: 7 cm scalp laceration, Y-shaped Consent: Risks, benefits, and alternatives discussed with patient and consent obtained Procedure: Local anesthesia was achieved using 1% Lidocaine with epinephrine. The wound was copiously irrigated and cleaned. 16 frankie were placed. The estimated blood loss was minimal. Bacitracin applied to the area. The patient tolerated the procedure well without complications. Foreign Material: None Debridement: None but some hair on the scalp was cut. Follow-up: Anticipatory guidance, as well as standard post-procedure care, was explained. Return precautions are given. Follow-up visit set for suture removal and evaluation of the laceration. Impression: 1. Closed head injury 2. Scalp hematoma 3. Scalp laceration status post repair with sutures Radiography Diagnostic Testing: Clinical Impression(s) from Imaging Studies Brain CT 06/06/25 10:38 IMPRESSION: Age consistent changes, no acute findings Reading Location: [address] Discharge Plan Triage Chief Complaint: Head Injury ED Provider: Klever Mullins Dx/Rx/DC Orders Prescriptions: No Action amoxicillin 500 mg capsule 2,000 mg PO ONCE PRN (Reason: avr) Qty: 4 3RF folic acid 1 MG tablet 1 mg PO DAILY@0800 Patient Comments: supplement methotrexate sodium 2.5 mg tablet 10 mg PO Q7D Patient Comments: takes on Sundays for RA aspirin 81 MG tablet 81 mg PO DAILY@0800 metoprolol succinate 25 mg tablet extended release 24 hr See Rx Instructions .ROUTE .COMPLEX Qty: 45 3RF Dose Instruction: TAKE ONE-HALF (1/2) TABLET DAILY Rx Instructions: TAKE ONE-HALF (1/2) TABLET DAILY atorvastatin 10 mg tablet 10 mg PO QHS Qty: 90 3RF Primary Care Provider: Daniel Davis Referrals: Daniel Davis MD [Primary Care Provider, Family Practice] Print Language: Egyptian
[2025-06-06] MEDS: Lidocaine 1% /Epi 1:100 (20ml) 20 ML Vial INFILT (10:48)
[2025-06-06 11:29] VITALS: BP 134/78; PULSE 76; RESP 18; TEMP 36.6; O2SAT 99
== END 2025-06-06 11:49 | disposition home or self-care (01) ==
PROVIDERS: Emergency Provider Surgery; PCP Family Medicine; Visit Provider Surgery
DX: S01.01XA Laceration without foreign body of scalp, initial encounter (principal); S61.412A Laceration without foreign body of left hand, initial encounter; I10 Essential (primary) hypertension; W01.198A Fall on same level from slipping, tripping and stumbling with subsequent striking against other object, initial encounter; Y92.015 Private garage of single-family (private) house as the place of occurrence of the external cause; Z23 Encounter for immunization
CPT/HCPCS: 12002; 70450; 90471; 90715; 99282